=== PATIENT | male | born 1940 | race Caucasian/White ===

== ENCOUNTER → 2022-06-07 | Outpatient (CLI) | payer MEDICARE, OTHER | LOC: CARD 14:01 | PROVIDERS: ATTEND Family Medicine Sports Medicine | DX: I34.0 Nonrheumatic mitral (valve) insufficiency (principal); I10 Essential (primary) hypertension; E66.3 Overweight; Z85.46 Personal history of malignant neoplasm of prostate; Z87.19 Personal history of other diseases of the digestive system | CPT/HCPCS: 93306 ==